=== PATIENT | female | born 1990 | race Caucasian/White ===

== ENCOUNTER 2016-12-04 10:51 | Emergency (ER) | payer BC ==
--- NOTE | 2016-12-04 11:31 | Emergency Department Record ---
History of Present Illness - General Chief Complaint: Headache Migraine Stated Complaint: HEAD PAIN Time Seen by Provider: 12/04/16 11:16 Source: Patient Mode of Arrival: Ambulatory Limitations: No limitations - History of Present Illness Initial Comments: The patient is here due to a 3 day hx of a sharp R posterior head pain along with sharp pain in the R TMJ area. The pain is sharp and stabbing and only lasts second at a time. She feels the pain every 3-5 minutes and it never lasts more than a second. It sometimes comes on with eating and chewing. There is no reported visual changes, nausea, vomiting, rashes, balance issues, fever or neck pain. The patient has a long hx of different types of headaches and has had a similar ROSARIO as this in the past about a year ago. On that occasion she went to [facility] in [place] and had a neg head CT. The patient denies any hx of trauma and is not on any blood thinners. MD Complaint: Headache Onset/Timin -: Days(s) Onset Description: Sudden Location: Occipital, Right Severity: Moderate Severity scale (1-10): 5 Quality: Sharp Consistency: Intermittent Improves With: Medication Worsens With: None Treatments Prior to Arrival: Acetaminophen Treatment Prior to Arrival Comment:: none today - Related Data Previous Rx's Medication Instructions Recorded Ibuprofen [Motrin 600Mg] 600 mg PO Q8H #20 tablet 12/04/16 Allergies Allergy/AdvReac Type Severity Reaction Status Date / Time No Known Drug Allergies Allergy Verified 12/04/16 11:13 Travel Screening - Travel/Exposure Within Last 30 Days Have you traveled within the last 30 days?: No - Travel/Exposure Within Last Year Have you traveled outside the [place] in the last year?: No - Additonal Travel Details Have you been exposed to anyone with a communicable illness?: No - Travel Symptoms Symptom Screening: None Review of Systems Constitutional: Denies: Chills, Fever Eyes: Denies: Eye discharge ENT: Denies: Congestion, Throat pain Respiratory: Denies: Cough, Dyspnea Past Medical History - SOCIAL HISTORY Smoking Status: Light tobacco smoker (<10/day) Alcohol Use: Occassional Drug Use: None - RESPIRATORY Hx Respiratory Disorders: No - CARDIOVASCULAR Hx Cardio Disorders: No - NEURO Hx Neuro Disorders: No - GI Hx GI Disorders: No - Hx Genitourinary Disorders: No - ENDOCRINE Hx Endocrine Disorders: Yes Comment:: Hypoglycemic - MUSCULOSKELETAL Hx Musculoskeletal Disorders: No - PSYCH Hx Psych Problems: No - HEMATOLOGY/ONCOLOGY Hx Hematology/Oncology Disorders: No Family Medical History Any Significant Family History?: Yes Hx Diabetes: Grandparents Hx Resp Disorders: Grandparents Physical Exam - General General Appearance: Alert, Oriented x3, Cooperative, No acute distress - Head Head exam: Atraumatic, Normocephalic, Normal inspection (Palpation of the R occiput area does reproduce similar pain to the patient. She describes it as a "nerve" pain and it hurts in that area to brush her hair.) - Eye Eye exam: Normal appearance, PERRL, EOMI - ENT ENT exam: Normal exam, Mucous membranes moist, Normal external ear exam, Normal orophraynx, TM's normal bilaterally, Other (There is mild tenderness in the R TMJ area also which does reproduce the pain minimally.) Throat exam: Normal inspection. negative: Tonsillar erythema, Tonsillar exudate - Neck Neck exam: Normal inspection, Full ROM. negative: Meningismus (The neck is very supple.), Tenderness - Respiratory Respiratory exam: Normal lung sounds bilaterally. negative: Respiratory distress - Cardiovascular Cardiovascular Exam: Regular rate, Normal rhythm, Normal heart sounds - Extremities Extremities exam: Normal inspection, Full ROM, Normal capillary refill. negative: Tenderness - Back Back exam: Reports: Normal inspection, Full ROM. Denies: Muscle spasm, Rash noted, Tenderness - Neurological Neurological exam: Alert, Normal gait, Oriented X3, Other (Neg Drift and Rhomberg.). negative: Abnormal gait, Altered, Motor sensory deficit - Psychiatric Psychiatric exam: negative: Agitated, Anxious - Skin Skin exam: negative: Petechiae, Rash Course Vital Signs 12/04/16 12/04/16 11:02 11:16 Temperature 98.6 F 97.7 F Pulse Rate 73 75 Respiratory 18 18 Rate Blood Pressure 120/77 Pulse Ox 99 - Reevaluation(s) Reevaluation #1: The patient is resting comfortably and is pain free presently. I explained to her that her test results are all neg and her head CT was neg from 15 months ago. She is to use the Motrin for pain and to F/U with her PCP if not better for further testing. 12/04/16 12:05 Medical Decision Making - Lab Data Result diagrams: 12/04/16 11:25 12/04/16 11:25 Disposition Disposition: Discharge Clinical Impression: Head pain, chronic Disposition: Home, Self-Care Condition: (1) Good Instructions: Acute Headache (ED) Additional Instructions: Please take the Motrin as directed. Please see your PCP if not better in 3 days. Return to the ER if worse. Prescriptions: Ibuprofen [Motrin 600Mg] 600 mg PO Q8H #20 tablet Forms: Patient Portal Access Time of Disposition: 12:04 Quality - Quality Measures Quality Measures: Headache - Headache: Neuroimaging Quality Measure: Measure #419: Overuse of Neuroimaging Headache: Use of Neuroimaging: < CTA, CT, MRA or MRI was NOT ordered > [G9534] Neurological Exam: Patient had a normal neurological exam. [G9535] - Blood Pressure Screening Blood Pressure Classification: Pre-Hypertensive BP Reading Systolic Measurement: 120 Diastolic Measurement: 77 Screening for High Blood Pressure: < Pre-Hypertensive BP, F/U Documented > [ G8950] Pre-Hypertensive Follow-up Interventions: Follow-up with rescreen every year.
[2016-12-04] MEDS: IBUPROFEN 600 MG TABLET PO ONE (11:34)
[2016-12-04 11:39] LABS: BASO % 0.2 % (0-6); GRAN % 51.8 % (47-80); HEMATOCRIT 37.1 % (35.0-47.0); HEMOGLOBIN 12.4 gm/dl (11.6-16.0); LYMPH % 39.6 % (16-45); MEAN CELL VOLUME 91.4 fl (81-97); MEAN CORPUSCULAR HEMOGLOBIN 30.5 pg (27-33); MEAN CORPUSCULAR HGB CONC 33.4 g/dl (32-36); MEAN PLATELET VOLUME 9.9 fl (7.4-10.4); MONO % 7.4 % (0-9); PLATELET COUNT 221 K/uL (130-400); RED BLOOD COUNT 4.06 M/uL (3.80-5.40); RED CELL DISTRIBUTION WIDTH 12.3 % (11.5-14.5)
[2016-12-04 11:52] LABS: ANION GAP 10.9 (7-16); BLOOD UREA NITROGEN 11 mg/dL (7-17); CARBON DIOXIDE 24.1 mmol/L (22-30); CREATININE 0.7 mg/dL (0.52-1.04); EST GLOMERULAR FILTRATION RATE > 60 ml/min; GLUCOSE,RANDOM 91 mg/dL (70-110)
[2016-12-04 11:53] LABS: C-REACTIVE PROTEIN < 0.5 mg/dL (0.0-0.9)
== END 2016-12-04 12:11 | disposition home or self-care (01) ==
LOC: ER 10:51
DX: G89.29 Other chronic pain (principal); R51 Headache
CPT/HCPCS: 80048; 85025; 86140; 99283

== ENCOUNTER 2017-01-19 20:52 | Emergency (ER) | payer BC, MEDICAID ==
--- NOTE | 2017-01-19 22:22 | Emergency Department Record ---
History of Present Illness - General Chief Complaint: Chest Pain Stated Complaint: CHEST PAIN X 3 WEEKS Time Seen by Provider: 01/19/17 22:21 Source: Patient Mode of Arrival: Ambulatory Limitations: No limitations - History of Present Illness Initial Comments: The patient is here due to sharp stabbing CP for 3 weeks. The pain lasts 1-5 minutes usually. She denies any SOB, MEGAN, or sweating with the pain. It sometimes comes on with chest and arm twisting and sometimes at rest. The patient denies any exertional component. She states she has no hx of similar issues and denies any OCP use of leg pain. The patient has no cardiac risk factors. MD Complaint: Chest pain Onset/Timin -: Week(s) Onset: During rest Pain Location: Left chest Severity: Moderate Severity scale (1-10): 2 Quality: Sharp Consistency: Intermittent, Getting worse - Related Data Previous Rx's Medication Instructions Recorded Naproxen [Naprosyn] 250 mg PO BID #14 tablet 01/19/17 Allergies Allergy/AdvReac Type Severity Reaction Status Date / Time No Known Drug Allergies Allergy Verified 12/04/16 11:13 Travel Screening - Travel/Exposure Within Last 30 Days Have you traveled within the last 30 days?: No - Travel Symptoms Symptom Screening: None Review of Systems Constitutional: Denies: Chills, Fever Eyes: Denies: Eye discharge ENT: Denies: Congestion, Throat pain Respiratory: Denies: Cough, Dyspnea Past Medical History - SOCIAL HISTORY Smoking Status: Light tobacco smoker (<10/day) Alcohol Use: Occasional Drug Use: None - RESPIRATORY Hx Respiratory Disorders: No - CARDIOVASCULAR Hx Cardio Disorders: No - NEURO Hx Neuro Disorders: No - GI Hx GI Disorders: No - Hx Genitourinary Disorders: No - ENDOCRINE Hx Endocrine Disorders: Yes Comment:: Hypoglycemic - MUSCULOSKELETAL Hx Musculoskeletal Disorders: No - PSYCH Hx Psych Problems: No - HEMATOLOGY/ONCOLOGY Hx Hematology/Oncology Disorders: No Family Medical History Any Significant Family History?: Yes Hx Diabetes: Grandparents Hx Resp Disorders: Grandparents Physical Exam - General General Appearance: Alert, Oriented x3, Cooperative, No acute distress - Head Head exam: Atraumatic, Normocephalic, Normal inspection - Eye Eye exam: Normal appearance, PERRL - Neck Neck exam: Normal inspection, Full ROM. negative: Tenderness - Respiratory Respiratory exam: Normal lung sounds bilaterally, Chest wall tenderness ( Palpation of the upper sternum and L sided costochondral joints reproduces the pain 100%.). negative: Respiratory distress - Cardiovascular Cardiovascular Exam: Regular rate, Normal rhythm, Normal heart sounds. negative : Diastolic murmur, Systolic murmur - GI/Abdominal GI/Abdominal exam: Soft, Normal bowel sounds. negative: Tenderness - Extremities Extremities exam: Normal inspection, Full ROM, Normal capillary refill. negative: Calf tenderness, Pedal edema, Tenderness Course Vital Signs 01/19/17 21:53 Temperature 97.4 F L Pulse Rate 69 Respiratory 18 Rate Blood Pressure 111/64 Pulse Ox 100 - Reevaluation(s) Reevaluation #1: The patient is doing very well at this time. I explained to her that her tests are all WNL's. She is concerned about her thyroid and breasts for CA and would like a thyroid test ordered so I did add a TSH on to blood in lab. She is to F/ U with a PCP for further testing and to have her multiple complaints evaluated further. 01/19/17 23:37 Medical Decision Making - Data Complexity MDM Data: Labs Ordered and/or Reviewed, X-Ray Ordered and/or Reviewed, EKG Ordered and/or Reviewed - Lab Data Result diagrams: 01/19/17 22:45 01/19/17 22:45 - EKG Data -: EKG Interpreted by Me EKG: No Acute Changes, Normal EKG - Radiology Data Radiology results: Image reviewed (CXR: Neg.) Disposition Disposition: Discharge Clinical Impression: Chest wall pain Disposition: Home, Self-Care Condition: (1) Good Instructions: Chest Wall Pain (ED) Additional Instructions: Please take the Naprosyn for pain and please see a PCP for further evaluation. Return to the ER for any problems or issues. Prescriptions: Naproxen [Naprosyn] 250 mg PO BID #14 tablet Forms: Patient Portal Access Time of Disposition: 23:40 Quality - Quality Measures Quality Measures: N/A - Blood Pressure Screening View Details: Yes Does Patient Have Any of the Following: No Blood Pressure Classification: Pre-Hypertensive BP Reading Systolic Measurement: 126 Diastolic Measurement: 75 Screening for High Blood Pressure: < Pre-Hypertensive BP, F/U Documented > [ G8950] Pre-Hypertensive Follow-up Interventions: Referral to alternative/primary care provider.
[2017-01-19 22:53] LABS: BASO % 0.2 % (0-6); EOS % 1.6 % (0-6); HEMATOCRIT 37.5 % (35.0-47.0); HEMOGLOBIN 12.6 gm/dl (11.6-16.0); LYMPH % 37.5 % (16-45); MEAN CELL VOLUME 90.4 fl (81-97); MEAN CORPUSCULAR HEMOGLOBIN 30.4 pg (27-33); MEAN CORPUSCULAR HGB CONC 33.6 g/dl (32-36); MEAN PLATELET VOLUME 10.5 fl (7.4-10.4); MONO % 5.7 % (0-9); PLATELET COUNT 229 K/uL (130-400); RED BLOOD COUNT 4.15 M/uL (3.80-5.40); RED CELL DISTRIBUTION WIDTH 12.3 % (11.5-14.5)
[2017-01-19 23:05] LABS: ANION GAP 9.8 (7-16); BLOOD UREA NITROGEN 16 mg/dL (7-17); CARBON DIOXIDE 27.2 mmol/L (22-30); CREATINE PHOSPHOKINASE 29 U/L (30-135); CREATININE 0.8 mg/dL (0.52-1.04); EST GLOMERULAR FILTRATION RATE > 60 ml/min; GLUCOSE,RANDOM 93 mg/dL (70-110)
[2017-01-19 23:17] LABS: CKMB 0.3 ug/L (0-6)
[2017-01-19 23:23] LABS: TROPONIN I < 0.012 ng/mL (0.00-0.034)
--- NOTE | 2017-01-21 22:02 | RADIOLOGY REPORT ---
EXAM: CHEST 2 VIEWS HISTORY: CHEST PAIN. TECHNIQUE: Frontal and lateral views of the chest. COMPARISON: None. FINDINGS: The heart size is normal. The lungs are clear. There is no pneumothorax. IMPRESSION: NEGATIVE CHEST. JOB NUMBER: [id number] MTDD
== END 2017-01-19 23:51 | disposition home or self-care (01) ==
LOC: ER 20:52
DX: R07.89 Other chest pain (principal); F17.210 Nicotine dependence, cigarettes, uncomplicated
CPT/HCPCS: 71020; 80048; 82550; 82553; 84443; 84484; 84703; 85025; 93005; 93010; 99284

== ENCOUNTER 2017-02-18 23:44 | Emergency (ER) | payer MEDICAID ==
--- NOTE | 2017-02-18 23:56 | Emergency Department Record ---
History of Present Illness - General Chief Complaint: Chest Pain Stated Complaint: CHEST PAIN,SOB,BACK PAIN Time Seen by Provider: 02/18/17 23:53 Source: Patient Mode of Arrival: Ambulatory Limitations: No limitations - History of Present Illness Initial Comments: 26 yo female presents to ED with a CC of shortness of breath and chest discomfort symptoms that began 3 hours ago. Patient reports similar symptoms 1 months ago, was evaluated in ED and discharged home following a negative work- up. Patient denies health problems at her baseline, denies calf pain/swelling or OCP use, denies history of DVT or recent surgery/immobilization. Patient denies fevers, chills, or cough symptoms. Patient denies numbness/tingling to the extremities. Patient denies cough or bloody sputum. Patient also reports that her symptoms occur at rest. MD Complaint: Chest pain Onset/Timin -: Hour(s) Onset: During rest Pain Location: Substernal Severity: Moderate Severity scale (1-10): 7 Consistency: Intermittent Improves With: Nothing Worsens With: Nothing - Related Data On Oral Contraceptives: No Allergies Allergy/AdvReac Type Severity Reaction Status Date / Time No Known Drug Allergies Allergy Verified 12/04/16 11:13 Travel Screening - Travel/Exposure Within Last 30 Days Have you traveled within the last 30 days?: No Review of Systems Constitutional: Denies: Chills, Fever, Malaise, Night sweats Eyes: Denies: Eye discharge, Eye pain ENT: Denies: Congestion, Ear pain Respiratory: Reports: Dyspnea. Denies: Cough, Hemoptysis Cardiovascular: Reports: Chest pain. Denies: Dyspnea on exertion Endocrine: Denies: Fatigue, Heat or cold intolerance Gastrointestinal: Denies: Abdominal pain, Nausea, Vomiting Genitourinary: Denies: Incontinence, Retention Musculoskeletal: Denies: Arthralgia, Back pain, Gout, Joint swelling Skin: Denies: Bruising, Change in color Neurological: Denies: Abnormal gait, Confusion, Headache, Seizure Psychiatric: Denies: Anxiety Hematological/Lymphatic: Denies: Anemia, Blood Clots Past Medical History - SOCIAL HISTORY Smoking Status: Light tobacco smoker (<10/day) Alcohol Use: None Drug Use: None - RESPIRATORY Hx Respiratory Disorders: No - CARDIOVASCULAR Hx Cardio Disorders: No - NEURO Hx Neuro Disorders: No - GI Hx GI Disorders: No - Hx Genitourinary Disorders: No - ENDOCRINE Hx Endocrine Disorders: Yes Comment:: Hypoglycemic - MUSCULOSKELETAL Hx Musculoskeletal Disorders: No - PSYCH Hx Psych Problems: No - HEMATOLOGY/ONCOLOGY Hx Hematology/Oncology Disorders: No Family Medical History Any Significant Family History?: Yes Hx Diabetes: Grandparents Hx Resp Disorders: Grandparents Physical Exam - General General Appearance: Alert, Oriented x3, Cooperative, No acute distress, Anxious Limitations: No limitations - Head Head exam: Atraumatic, Normocephalic, Normal inspection Head exam detail: negative: Abrasion, Contusion, Bradley's sign, General tenderness, Hematoma, Laceration - Eye Eye exam: Normal appearance. negative: Conjunctival injection, Periorbital swelling, Periorbital tenderness, Scleral icterus - ENT Ear exam: negative: Auricular hematoma, Auricular trauma Nasal Exam: negative: Active bleeding, Discharge, Dried blood, Foreign body Mouth exam: negative: Drooling, Laceration, Muffled voice, Tongue elevation Throat exam: negative: Tonsillar erythema, Tonsillomegaly, R peritonsillar mass , L peritonsillar mass - Neck Neck exam: Normal inspection. negative: Meningismus, Tenderness - Respiratory Respiratory exam: Normal lung sounds bilaterally. negative: Rales, Respiratory distress, Rhonchi, Stridor - Cardiovascular Cardiovascular Exam: Regular rate, Normal rhythm, Normal heart sounds - GI/Abdominal GI/Abdominal exam: Soft. negative: Rebound, Rigid, Tenderness - Rectal Rectal exam: Deferred - exam: Deferred - Extremities Extremities exam: Normal inspection. negative: Calf tenderness, Pedal edema, Tenderness - Back Back exam: Denies: CVA tenderness (R), CVA tenderness (L) - Neurological Neurological exam: Alert, Normal gait, Oriented X3 - Psychiatric Psychiatric exam: Anxious - Skin Skin exam: Normal color. negative: Abrasion Type of lesion: negative: abrasion Course - Reevaluation(s) Reevaluation #1: 02/18/17 23:56 EKG: NSR 68 Normal axis, normal intervals No acute ST-T wave changes No change from 01/19/17 02/19/17 00:18 Reevaluation #2: 02/19/17 00:17 Patient seen and evaluated, PERC negative on examination and pulses are symmetric and strong x 4. No historical or physical exam findings c/w aortic dissection. As a result, D-Dimer and CTA imaging are not indicated based on the patient's examination. Will review the patient's CXR when completed. Reevaluation #3: 02/19/17 00:24 CXR: No acute process Patient was updated on all results, she is resting comfortably at this time. Patient's symptoms appear c/w anxiety. Patient was instructed to follow-up with her PCP for further evaluation of possible anxiety symptoms. Patient appears stable for discharge at this time. Disposition Disposition: Discharge Clinical Impression: Atypical chest pain Disposition: Home, Self-Care Condition: (2) Stable Instructions: Chest Wall Pain (ED) Additional Instructions: Return to ED if your symptoms worsen or if you have any concerns. Follow-up with you family doctor in 5-7 days as directed. Forms: Patient Portal Access Time of Disposition: 00:26 Quality - Quality Measures Quality Measures: N/A - Blood Pressure Screening Does Patient Have Any of the Following: No Blood Pressure Classification: Hypertensive Reading Systolic Measurement: 135 Diastolic Measurement: 92 Screening for High Blood Pressure: < Pre-Hypertensive BP, F/U Documented > [ G8950] Pre-Hypertensive Follow-up Interventions: Referral to alternative/primary care provider.
--- NOTE | 2017-02-20 14:13 | RADIOLOGY REPORT ---
EXAM: CHEST, TWO VIEWS HISTORY: CHEST PAIN AND SHORTNESS OF BREATH FOR A MONTH, WORSE TODAY. TECHNIQUE: PA and lateral views of the chest were obtained. Comparison: Two view chest 01/19/17. FINDINGS: The heart size is normal. The lungs appear expanded with no acute infiltrate seen. No pleural effusion or pneumothorax evident. IMPRESSION: THE CHEST APPEARS NEGATIVE WITH NO ACUTE INFILTRATE EVIDENT. JOB NUMBER: [id number] MTDD
== END 2017-02-19 00:56 | disposition home or self-care (01) ==
LOC: ER 23:44
DX: R07.89 Other chest pain (principal); R06.02 Shortness of breath
CPT/HCPCS: 71020; 93005; 93010; 99284

== ENCOUNTER 2017-04-04 00:53 | Emergency (ER) | payer MEDICAID ==
--- NOTE | 2017-04-04 01:08 | Emergency Department Record ---
History of Present Illness - General Chief Complaint: Chest Pain Stated Complaint: CHEST PAIN Time Seen by Provider: 04/04/17 00:54 Source: Patient Mode of Arrival: EMS Limitations: No limitations - History of Present Illness Initial Comments: 26 yo female presents to ED for recurrent chest pain symptoms and numbness/ tingling to the hands bilaterally that has now resolved. Patient reports that her symptoms have been occurring intermittently throughout the day, symptoms are currently gone. Patient reports that her symptoms occur at rest. Patient describes a "sharp" sensation to the sub-sternal chest, denies health problems at her baseline. Patient has been evaluated in December and January for similar symptoms occurring for "3 weeks" with her previous presentations. Patient reports that she has seen her PCP x 2 but has not mentioned these symptoms to her. MD Complaint: Chest pain Onset/Timin -: Month(s) Onset: During rest Pain Location: Substernal Pain Radiation: None Severity: Moderate Quality: Sharp Consistency: Intermittent Improves With: Nothing Worsens With: Nothing Treatments Prior to Arrival: None - Related Data On Oral Contraceptives: No Allergies Allergy/AdvReac Type Severity Reaction Status Date / Time No Known Drug Allergies Allergy Verified 12/04/16 11:13 Review of Systems Constitutional: Denies: Chills, Fever, Malaise, Night sweats Eyes: Denies: Eye discharge, Eye pain ENT: Denies: Congestion, Ear pain, Epistaxis Respiratory: Denies: Cough, Dyspnea Cardiovascular: Reports: Chest pain. Denies: Dyspnea on exertion, Palpitations Endocrine: Denies: Fatigue, Heat or cold intolerance Gastrointestinal: Denies: Abdominal pain, Nausea, Vomiting Genitourinary: Denies: Incontinence, Retention Musculoskeletal: Denies: Arthralgia, Back pain, Gout, Joint swelling Skin: Denies: Bruising, Change in color Neurological: Denies: Abnormal gait, Confusion, Headache, Seizure Psychiatric: Denies: Anxiety Hematological/Lymphatic: Denies: Anemia, Blood Clots Past Medical History - SOCIAL HISTORY Smoking Status: Light tobacco smoker (<10/day) Drug Use: None - RESPIRATORY Hx Respiratory Disorders: No - CARDIOVASCULAR Hx Cardio Disorders: No - NEURO Hx Neuro Disorders: No - GI Hx GI Disorders: No - Hx Genitourinary Disorders: No - ENDOCRINE Hx Endocrine Disorders: Yes Comment:: Hypoglycemic - MUSCULOSKELETAL Hx Musculoskeletal Disorders: No - PSYCH Hx Psych Problems: No - HEMATOLOGY/ONCOLOGY Hx Hematology/Oncology Disorders: No Family Medical History Hx Diabetes: Grandparents Hx Resp Disorders: Grandparents Physical Exam - General General Appearance: Alert, Oriented x3, Cooperative, No acute distress Limitations: No limitations - Head Head exam: Atraumatic, Normocephalic, Normal inspection Head exam detail: negative: Abrasion, Contusion, Bradley's sign, General tenderness, Hematoma, Laceration - Eye Eye exam: Normal appearance. negative: Conjunctival injection, Periorbital swelling, Periorbital tenderness, Scleral icterus - ENT Ear exam: negative: Auricular hematoma, Auricular trauma Nasal Exam: negative: Active bleeding, Discharge, Dried blood, Foreign body Mouth exam: negative: Drooling, Laceration, Muffled voice, Tongue elevation - Neck Neck exam: Normal inspection. negative: Meningismus, Tenderness - Respiratory Respiratory exam: Normal lung sounds bilaterally. negative: Rales, Respiratory distress, Rhonchi, Stridor - Cardiovascular Cardiovascular Exam: Regular rate, Normal rhythm, Normal heart sounds - GI/Abdominal GI/Abdominal exam: Soft. negative: Rebound, Rigid, Tenderness - Rectal Rectal exam: Deferred - exam: Deferred - Extremities Extremities exam: Normal inspection. negative: Calf tenderness, Pedal edema, Tenderness - Back Back exam: Denies: CVA tenderness (R), CVA tenderness (L) - Neurological Neurological exam: Alert, Normal gait, Oriented X3 - Psychiatric Psychiatric exam: Flat affect - Skin Skin exam: Normal color. negative: Abrasion Type of lesion: negative: abrasion Course - Reevaluation(s) Reevaluation #1: 04/04/17 01:08 After discussing a treatment course for her now 3rd visit to the ED for similar symptoms, reccommended further imaging with CTA of the Chest/Abdomen as her previous evaluations have been negative for an acute process. Patient states "if you think throwing more radiation at the problem is going to help, go ahead ". I informed the patient that the decision was up to her, she replied "you're the doctor, you do what you want". CTA ordered for further evaluation of her on -going symptoms. EKG: NSR 61 Normal axis, normal intervals No acute ST-T wave changes are present. Reevaluation #2: 04/04/17 02:03 Labs reviewed and are grossly unremarkable for an acute process. Patient is currently in CT for imaging. Reevaluation #3: 04/04/17 02:47 CTA Chest: Negative for Dissection. Patient is continues to be PERC negative on examination. Reevaluation #4: 04/04/17 02:50 Patient was updated on all results, reports that she is resting comfortably and appears stable for discharge at this time. Medical Decision Making - Lab Data Result diagrams: 04/04/17 01:20 04/04/17 01:20 Disposition Disposition: Discharge Clinical Impression: Atypical chest pain Disposition: Home, Self-Care Condition: (2) Stable Instructions: Chest Pain (ED) Additional Instructions: Return to ED if your symptoms worsen or if you have any concerns. Follow-up with your family doctor in 3-5 days without fail for further evaluation of your chronic chest pain symptoms. Forms: Patient Portal Access Time of Disposition: 02:47 Quality - Quality Measures Quality Measures: N/A - Blood Pressure Screening Does Patient Have Any of the Following: No Blood Pressure Classification: Normal BP Reading Systolic Measurement: 101 Diastolic Measurement: 68 Screening for High Blood Pressure: < Normal BP, F/U Not Required > [G8783]
[2017-04-04] MEDS ORDERED: 0.9 % SODIUM CHLORIDE 1000ML 1,000 ML IV SCH (01:15)
[2017-04-04 01:41] LABS: BASO % 0.2 % (0-6); EOS % 2.3 % (0-6); GRAN % 55.8 % (47-80); HEMATOCRIT 37.8 % (35.0-47.0); HEMOGLOBIN 12.6 gm/dl (11.6-16.0); LYMPH % 33.6 % (16-45); MEAN CELL VOLUME 91.5 fl (81-97); MEAN CORPUSCULAR HEMOGLOBIN 30.5 pg (27-33); MEAN CORPUSCULAR HGB CONC 33.3 g/dl (32-36); MEAN PLATELET VOLUME 10.3 fl (7.4-10.4); MONO % 8.1 % (0-9); PLATELET COUNT 219 K/uL (130-400); RED BLOOD COUNT 4.13 M/uL (3.80-5.40); RED CELL DISTRIBUTION WIDTH 12.4 % (11.5-14.5); WHITE BLOOD COUNT W/O DIFF 9.3 K/uL (4.2-12.2)
[2017-04-04 01:52] LABS: ALB/GLOB RATIO 1.5 (1.1-1.8); ALBUMIN 4.4 g/dL (4.0-5.0); ALKALINE PHOSPHATASE 70 U/L (35-104); ALT/SGPT 10 U/L (<33); AST/SGOT 16 U/L (10.0-35.0); BLOOD UREA NITROGEN 15 mg/dL (6-20); CREATININE 0.6 mg/dL (0.5-0.9); EST GLOMERULAR FILTRATION RATE > 60 mL/min; GLUCOSE,RANDOM 118 mg/dL (74-109); TOTAL PROTEIN 7.3 g/dL (6.6-8.7)
--- NOTE | 2017-04-04 14:18 | CT ANGIOGRAM REPORT ---
EXAM: CTA OF THE CHEST AND ABDOMEN HISTORY: ACUTE GENERALIZED SHARP CHEST PAIN. TECHNIQUE: Contiguous axial images from the thoracic inlet to the anterior superior iliac crest were obtained after the uneventful intravenous administration of 89 ml of Omnipaque 350. Sagittal and coronal two dimensional MIP as well as 3D/MIP reformatted images were obtained for better anatomic delineation. Comparison: Chest x-ray 02/19/17. FINDINGS: The lungs are clear. The heart is not enlarged and there is no pericardial effusion. No coronary artery calcification. Calcified subcarinal lymph node. No enlarged lymph nodes in the thorax. No filling defect to suggest pulmonary embolism. No aortic aneurysm or aortic dissection. No atheromatous change of the aorta. The liver, spleen, kidneys, adrenals, pancreas and gallbladder are normal. The visualized loops of small and large bowel are of normal caliber with moderate fecal material throughout the colon. Normal appendix. No bowel wall thickening. No free intraperitoneal fluid or adenopathy. No lytic or blastic osseous lesion. IMPRESSION: 1. NO ACUTE PROCESS OF THE CHEST OR ABDOMEN WITH NO AORTIC DISSECTION. NO PULMONARY EMBOLISM. 2. NORMAL APPENDIX. JOB NUMBER: [id number] [facility]
== END 2017-04-04 02:59 | disposition home or self-care (01) ==
LOC: ER 00:53
DX: R07.89 Other chest pain (principal); R20.0 Anesthesia of skin; F17.210 Nicotine dependence, cigarettes, uncomplicated
CPT/HCPCS: 99284 ×2; 85025; 80053; 81025; 71275; 74175; 93005; 93010; Q9967; J7030

== ENCOUNTER 2018-09-28 17:16 | Emergency (ER) | payer MEDICAID ==
[2018-09-28] MEDS ORDERED: 0.9 % SODIUM CHLORIDE 1,000 ML BAG IV ONE (17:39)
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
[2018-09-28 17:56] LABS: BASO % 0.2 % (0-6); GRAN % 50.7 % (47-80); HEMATOCRIT 41.4 % (35.0-47.0); HEMOGLOBIN 13.7 gm/dl (11.6-16.0); LYMPH % 38.7 % (16-45); MEAN CORPUSCULAR HEMOGLOBIN 30.4 pg (27-33); MEAN CORPUSCULAR HGB CONC 33.1 g/dl (32-36); MEAN PLATELET VOLUME 10.2 fl (7.4-10.4); MONO % 9.4 % (0-9); PLATELET COUNT 250 K/uL (130-400); RED CELL DISTRIBUTION WIDTH 12.5 % (11.5-14.5); WHITE BLOOD COUNT W/O DIFF 8.6 K/uL (4.2-12.2)
[2018-09-28 17:58] LABS: URINE APPEARANCE CLEAR; URINE BILIRUBIN NEGATIVE (NEGATIVE); URINE BLOOD NEGATIVE (NEGATIVE); URINE COLOR YELLOW; URINE GLUCOSE (UA) NEGATIVE (NEGATIVE); URINE KETONE NEGATIVE (NEGATIVE); URINE LEUKOCYTE ESTERASE NEGATIVE (NEGATIVE); URINE NITRITE NEGATIVE (NEGATIVE); URINE PROTEIN NEGATIVE (NEGATIVE); URINE UROBILINOGEN 0.2 E.U./dL (0.20 - 1.00)
[2018-09-28 18:00] LABS: HCG,QUALITATIVE URINE NEGATIVE (NEGATIVE)
[2018-09-28 18:03] LABS: AMPHETAMINE SCREEN URINE DETECTED; BARBITURATE SCREEN URINE NOT DETECTED; BENZODIAZEPINE SCREEN URINE NOT DETECTED; COCAINE SCREEN URINE NOT DETECTED; METHADONE SCREEN URINE NOT DETECTED; METHAMPHETAMINE SCREEN NOT DETECTED; OPIATE SCREEN URINE NOT DETECTED; OXYCODONE SCREEN URINE NOT DETECTED; PHENCYCLIDINE SCREEN URINE NOT DETECTED; PROPOXYPHENE SCREEN URINE NOT DETECTED; THC SCREEN URINE DETECTED; TRICYCLIC ANTIDEPRESSANT SCRN NOT DETECTED
[2018-09-28 18:12] LABS: BLOOD UREA NITROGEN 10 mg/dL (6-20); CREATININE 0.6 mg/dL (0.5-0.9); EST GLOMERULAR FILTRATION RATE > 60 mL/min; TOTAL PROTEIN 7.6 g/dL (6.6-8.7)
[2018-09-28 18:14] LABS: GLUCOSE,RANDOM 95 mg/dL (74-109)
[2018-09-28 18:17] LABS: ALB/GLOB RATIO 1.8 (1.1-1.8); ALBUMIN 4.9 g/dL (4.0-5.0); ALKALINE PHOSPHATASE 57 U/L (35-104); ALT/SGPT 17 U/L (<33); AST/SGOT 22 U/L (10.0-35.0)
== END 2018-09-28 18:57 | disposition home or self-care (01) ==
LOC: ER 17:16
DX: T43.621A Poisoning by amphetamines, accidental (unintentional), initial encounter (principal); R41.0 Disorientation, unspecified; R53.1 Weakness; Y92.89 Other specified places as the place of occurrence of the external cause; F17.210 Nicotine dependence, cigarettes, uncomplicated
CPT/HCPCS: 80053; 80305; 81003; 81025; 85025; 96360; 99284; J7030

== ENCOUNTER 2019-01-02 11:45 | Emergency (ER) | payer MEDICAID ==
[2019-01-02] MEDS ORDERED: KETOROLAC 30 MG/ML VIAL IM ONE (12:30)
--- NOTE | 2019-01-02 12:34 | Emergency Department Record ---
History of Present Illness - General Chief Complaint: Headache Migraine Stated Complaint: MIGRAINE Time Seen by Provider: 01/02/19 12:09 Source: Patient Mode of Arrival: Ambulatory Limitations: No limitations - History of Present Illness Initial Comments: The patient is here due to waking up with a ROSARIO at 6am today. The pain is sharp and throbbing and located like a band around her head. She has had some nausea and one episode of vomiting but that is gone now. The patient denies any visual changes, balance issues or fevers. After thinking about it she has had similar issues with headaches in the past. She was here in 2017 for similar pain. Complaint: Headache Onset/Timin -: Hour(s) Onset Description: Awoke with symptoms Location: Frontal, Occipital Severity: Moderate Severity scale (1-10): 6 Quality: Aching Consistency: Constant Improves With: Nothing Worsens With: None Associated Symptoms: Nausea, Vomiting Treatments Prior to Arrival: None - Related Data Previous Rx's Medication Instructions Recorded Naproxen [Naprosyn] 500 mg PO BID #14 tablet. 01/02/19 Allergies Allergy/AdvReac Type Severity Reaction Status Date / Time No Known Drug Allergies Allergy Verified 09/28/18 17:33 Travel Screening - Travel/Exposure Within Last 30 Days Have you traveled within the last 30 days?: No Review of Systems Constitutional: Denies: Chills, Fever Eyes: Denies: Eye discharge ENT: Denies: Congestion Respiratory: Denies: Cough, Dyspnea Past Medical History - SOCIAL HISTORY Smoking Status: Current some day smoker - RESPIRATORY Hx Respiratory Disorders: No - CARDIOVASCULAR Hx Cardio Disorders: No - NEURO Hx Neuro Disorders: No - GI Hx GI Disorders: No - Hx Genitourinary Disorders: No - ENDOCRINE Hx Endocrine Disorders: Yes Comment:: Hypoglycemic - MUSCULOSKELETAL Hx Musculoskeletal Disorders: No - PSYCH Hx Psych Problems: No - HEMATOLOGY/ONCOLOGY Hx Hematology/Oncology Disorders: No Family Medical History Any Significant Family History?: Yes Hx Diabetes: Grandparents Hx Resp Disorders: Grandparents Physical Exam - General General Appearance: Alert, Oriented x3, Cooperative, No acute distress (The patient appears VERY comfortable and in no distress and clearly nontoxic.) - Head Head exam: Atraumatic, Normocephalic, Normal inspection (The ROSARIO is very reproducible to palpation over the bitemporal scalp area. ) - Eye Eye exam: Normal appearance, PERRL, EOMI. negative: Conjunctival injection - ENT ENT exam: Normal exam, Mucous membranes moist, Normal external ear exam, Normal orophraynx, TM's normal bilaterally Throat exam: Normal inspection. negative: Tonsillar erythema, Tonsillar exudate - Neck Neck exam: Normal inspection, Full ROM. negative: Lymphadenopathy, Meningismus (The neck is very supple.), Tenderness - Respiratory Respiratory exam: Normal lung sounds bilaterally. negative: Respiratory distress - Cardiovascular Cardiovascular Exam: Regular rate, Normal rhythm, Normal heart sounds - GI/Abdominal GI/Abdominal exam: Soft, Normal bowel sounds. negative: Tenderness - Extremities Extremities exam: Normal inspection, Full ROM, Normal capillary refill. negative: Tenderness - Neurological Neurological exam: Alert, Normal gait, Oriented X3, Other (Neg Drift and Rhomberg.). negative: Abnormal gait, Altered, Motor sensory deficit Course Vital Signs 01/02/19 12:23 Temperature 98.8 F Pulse Rate [ 80 Pulse Ox Probe] Respiratory 18 Rate Blood Pressure 104/67 [Left Arm] Pulse Ox 98 - Reevaluation(s) Reevaluation #1: The patient is doing a lot better at this time. She is smiling and laughing and states the pain is pretty much gone. She is intructed to take the Naprosyn as directed and to see her PCP next week for any problems. 01/02/19 13:30 Disposition Disposition: Discharge Clinical Impression: Headache Qualifiers: Headache type: unspecified Headache chronicity pattern: acute headache Intractability: not intractable Qualified Code(s): R51 - Headache Disposition: Home, Self-Care Condition: (2) Stable Instructions: Acute Headache (ED) Additional Instructions: Please take the Naprosyn for pain and please see your family doctor if not better in 3 days. Return to the ER for any worsening symptoms. Prescriptions: Naproxen [Naprosyn] 500 mg PO BID #14 tablet.dr Forms: Patient Portal Access Time of Disposition: 13:31 Quality - Quality Measures Quality Measures: N/A - Blood Pressure Screening View Details: Yes Does Patient Have Any of the Following: No Blood Pressure Classification: Normal BP Reading Systolic Measurement: 104 Diastolic Measurement: 67 Screening for High Blood Pressure: < Normal BP, F/U Not Required > [G8783]
== END 2019-01-02 13:44 | disposition home or self-care (01) ==
LOC: ER 11:45
DX: R51 Headache (principal); R11.2 Nausea with vomiting, unspecified; F17.210 Nicotine dependence, cigarettes, uncomplicated
CPT/HCPCS: 96372; 99284; J1885

== ENCOUNTER 2019-01-19 19:52 | Emergency (ER) | payer MEDICAID ==
--- NOTE | 2019-01-19 20:08 | Emergency Department Record ---
History of Present Illness - General Chief Complaint: Dizziness Stated Complaint: DIARRHEA Time Seen by Provider: 01/19/19 19:57 Source: Patient, EMS Mode of Arrival: EMS Limitations: No limitations - History of Present Illness Initial Comments: 28 yo female presents to ED for evaluation of numbness and tingling symptoms that began 30 minutes ago, patient felt dizzy, denies focal weakness on examination. Patient denies chest discomfort or difficulty in breathing symptoms. Patient reports similar symptoms previously that have been attributed to anxiety. Patient also reports seeing her PCP recently for her symptoms, underwent MRI of the brain 2 days ago as well. MD Complaint: Dizziness, Lightheadedness Onset/Timin -: Minutes(s) Timing: Sudden onset, Now resolved Description: Lightheadedness History of Same: Yes History of Trauma: No Severity: Mild Improves With: Remaining still, Rest Worsens With: Movement - [place] Coma Scale Eye Response: (4) Open spontaneously Motor Response: (6) Obeys commands Verbal Response: (5) Oriented Barbara Total: 15 - Related Data Previous Rx's Medication Instructions Recorded Naproxen [Naprosyn] 500 mg PO BID #14 tablet. 01/02/19 Allergies Allergy/AdvReac Type Severity Reaction Status Date / Time No Known Drug Allergies Allergy Verified 09/28/18 17:33 Travel Screening - Travel/Exposure Within Last 30 Days Have you traveled within the last 30 days?: No - Travel Symptoms Symptom Screening: None Review of Systems Constitutional: Denies: Chills, Fever, Malaise, Night sweats Eyes: Denies: Eye discharge, Eye pain ENT: Denies: Congestion, Ear pain, Epistaxis Respiratory: Denies: Cough, Dyspnea Cardiovascular: Denies: Chest pain, Dyspnea on exertion Endocrine: Denies: Fatigue, Heat or cold intolerance Gastrointestinal: Denies: Abdominal pain, Nausea, Vomiting Genitourinary: Denies: Incontinence, Retention Musculoskeletal: Denies: Arthralgia, Back pain Skin: Denies: Bruising, Change in color Neurological: Reports: Numbness, Tingling, Tremors, Vertigo. Denies: Abnormal gait, Confusion, Headache, Seizure Psychiatric: Denies: Depression Hematological/Lymphatic: Denies: Anemia, Blood Clots Past Medical History - SOCIAL HISTORY Smoking Status: Current some day smoker Alcohol Use: None Drug Use: None - RESPIRATORY Hx Respiratory Disorders: No - CARDIOVASCULAR Hx Cardio Disorders: No - NEURO Hx Neuro Disorders: No - GI Hx GI Disorders: No - Hx Genitourinary Disorders: No - ENDOCRINE Hx Endocrine Disorders: Yes Comment:: Hypoglycemic - MUSCULOSKELETAL Hx Musculoskeletal Disorders: No - PSYCH Hx Psych Problems: No - HEMATOLOGY/ONCOLOGY Hx Hematology/Oncology Disorders: No Family Medical History Any Significant Family History?: Yes Hx Diabetes: Grandparents Hx Resp Disorders: Grandparents Physical Exam - General General Appearance: Alert, Oriented x3, Cooperative, No acute distress Limitations: No limitations - Head Head exam: Atraumatic, Normocephalic, Normal inspection Head exam detail: negative: Abrasion, Contusion, Bradley's sign, General ten derness, Hematoma, Laceration - Eye Eye exam: Normal appearance, EOMI. negative: Conjunctival injection, Periorbital swelling, Periorbital tenderness, Scleral icterus - ENT Ear exam: negative: Auricular hematoma, Auricular trauma Nasal Exam: negative: Active bleeding, Discharge, Dried blood, Foreign body Mouth exam: negative: Drooling, Laceration, Muffled voice, Tongue elevation - Neck Neck exam: Normal inspection. negative: Meningismus, Tenderness - Respiratory Respiratory exam: Normal lung sounds bilaterally. negative: Rales, Respiratory distress, Rhonchi, Stridor - Cardiovascular Cardiovascular Exam: Regular rate, Normal rhythm, Normal heart sounds - GI/Abdominal GI/Abdominal exam: Soft. negative: Rebound, Rigid, Tenderness - Rectal Rectal exam: Deferred - exam: Deferred - Extremities Extremities exam: Normal inspection. negative: Pedal edema, Tenderness - Back Back exam: Denies: CVA tenderness (R), CVA tenderness (L) - Neurological Neurological exam: Alert, CN II-XII intact, Normal gait, Oriented X3. negative: Motor sensory deficit - Psychiatric Psychiatric exam: Normal affect, Normal mood - Skin Skin exam: Normal color. negative: Abrasion Type of lesion: negative: abrasion Course Vital Signs 01/19/19 19:57 Temperature 97.9 F Pulse Rate 64 Respiratory 16 Rate Blood Pressure 117/64 Pulse Ox 99 - Reevaluation(s) Reevaluation #1: 01/19/19 20:16 EKG: NSR 61 Normal axis, normal intervals No acute ST-T wave changes are present. Reevaluation #2: 01/19/19 20:43 Laboratory studies were reviewed and appears grossly unremarkable for an acute process. Patient was reassessed, resting comfortably and denies symptoms at this time. Patient appears stable for discharge at this time. Medical Decision Making - Lab Data Result diagrams: 01/19/19 20:15 01/19/19 20:15 Disposition Disposition: Discharge Clinical Impression: Paresthesia Disposition: Home, Self-Care Condition: (2) Stable Instructions: Paresthesia (ED) Additional Instructions: Return to ED if your symptoms worsen or if you have any concerns. Follow-up with your family doctor in 3-5 days as directed. Forms: Patient Portal Access Time of Disposition: 20:43 Quality - Quality Measures Quality Measures: N/A - Blood Pressure Screening Does Patient Have Any of the Following: No Blood Pressure Classification: Normal BP Reading Systolic Measurement: 117 Diastolic Measurement: 64 Screening for High Blood Pressure: < Normal BP, F/U Not Required > [G8783]
[2019-01-19 20:25] LABS: ABSOLUTE NEUTROPHIL COUNT 7.72; BASO % 0.1 % (0-6); EOS % 0.5 % (0-6); GRAN % 73.5 % (47-80); HEMATOCRIT 35.3 % (35.0-47.0); HEMOGLOBIN 11.9 gm/dl (11.6-16.0); LYMPH % 19.9 % (16-45); MEAN CELL VOLUME 91.5 fl (81-97); MEAN CORPUSCULAR HEMOGLOBIN 30.8 pg (27-33); MEAN CORPUSCULAR HGB CONC 33.7 g/dl (32-36); MEAN PLATELET VOLUME 10.4 fl (7.4-10.4); PLATELET COUNT 206 K/uL (130-400); RED BLOOD COUNT 3.86 M/uL (3.80-5.40); RED CELL DISTRIBUTION WIDTH 11.8 % (11.5-14.5); WHITE BLOOD COUNT W/O DIFF 10.5 K/uL (4.2-12.2)
[2019-01-19 20:34] LABS: BLOOD UREA NITROGEN 17 mg/dL (6-20); CREATININE 0.6 mg/dL (0.5-0.9); EST GLOMERULAR FILTRATION RATE > 60 mL/min; TOTAL PROTEIN 6.9 g/dL (6.6-8.7)
[2019-01-19 20:36] LABS: GLUCOSE,RANDOM 100 mg/dL (74-109)
[2019-01-19 20:39] LABS: ALB/GLOB RATIO 1.9 (1.1-1.8); ALBUMIN 4.5 g/dL (4.0-5.0); ALKALINE PHOSPHATASE 60 U/L (35-104); ALT/SGPT 14 U/L (<33); AST/SGOT 14 U/L (10.0-35.0)
== END 2019-01-19 21:08 | disposition home or self-care (01) ==
LOC: ER 19:52
DX: R42 Dizziness and giddiness (principal); R20.2 Paresthesia of skin; E16.2 Hypoglycemia, unspecified; F17.210 Nicotine dependence, cigarettes, uncomplicated
CPT/HCPCS: 80053; 85025; 93005; 93010; 99284